=== PATIENT | male | born 1960 | race Caucasian/White ===

== ENCOUNTER 2018-10-29 23:44 | Inpatient (IN) | payer MEDICARE ==
[~2018-10-29] VITALS: Ht 172.7 cm; Wt 64.0 kg
[2018-10-29] MEDS ORDERED: MORPHINE SULFAT15 M4 (23:49)
[2018-10-29] MEDS ORDERED: FLOMAX0.4 MG (23:50)
[2018-10-29] MEDS ORDERED: GLUCOTROL 5 MG T5 MG (23:50)
[2018-10-29] MEDS ORDERED: STERAPRED 5MG 65 M1 (23:50)
[2018-10-29] MEDS ORDERED: COZAAR50 MG (23:50)
[2018-10-29] MEDS ORDERED: METFORMIN HCL500 M1 (23:50)
[2018-10-29] MEDS ORDERED: ALBUTEROL SULF8.5 GM (23:51)
[2018-10-29] MEDS ORDERED: ANORO ELLIPTA1 EACH (23:51)
[2018-10-30 00:11] LABS: BASOPHILS 0.1 % (0-2); EOSINOPHILS 0.1 % (0-7); HEMATOCRIT 43.2 % (42.0-54.0); HEMOGLOBIN 15.6 g/dL (13.5-17.5); IMMATURE GRANULOCYTES 0.4 % (0-5); LYMPHOCYTES 17.9 % (15-50); MCH 30.8 pg (26.0-34.0); MCHC 36.1 g/dL (31.0-37.0); MCV 85.4 fL (80.0-100.0); MEAN PLATELET VOLUME 8.7 fL (7.4-10.4); MONOCYTES 4.8 % (2-11); NEUTROPHILS 76.7 % (40-80); PLATELET COUNT 226 10x3/uL (130-400); RBC 5.06 10x6/uL (4.20-6.10); WBC 18.6 10x3/uL (4.8-10.8)
[2018-10-30 00:20] LABS: APTT 24.6 SECONDS (22.8-39.4); INR 0.91 (0.85-1.17); PROTIME 11.8 SECONDS (11.6-15.0)
--- NOTE | 2018-10-30 00:25 | NUR ---
PT REFUSED ABG
--- NOTE | 2018-10-30 00:25 | NUR ---
REPORT FROM KACIE TONY.
[2018-10-30 00:27] LABS: ALBUMIN 3.9 g/dL (3.4-5.0); ALKALINE PHOSPHATASE 80 U/L (46-116); ALT (SGPT) 22 U/L (10-68); BILIRUBIN - TOTAL 0.33 mg/dL (0.2-1.3); CALC OSMOLALITY 260 mosm/kg (275-300); CARBON DIOXIDE 24.8 mmol/L (21.0-32.0); CHLORIDE - SERUM 88 mmol/L (98-107); GLUCOSE 262 mg/dL (74-106); POTASSIUM - SERUM 3.9 mmol/L (3.5-5.1); SODIUM 126 mmol/L (136-145); UREA NITROGEN 11 mg/dL (7-18); eGFR NON AFRICAN AMERICAN 81 mL/min (90-120)
[2018-10-30 00:38] LABS: CKMB 1.8 U/L (0.0-3.6); CREATINE KINASE 133 UL (21-232); PRO BNP 67 pg/mL (0-125)
[2018-10-30 00:46] LABS: TROPONIN-I < 0.017 ng/mL (0.000-0.060)
[2018-10-30] MEDS ORDERED: HYDROCODONE-HOMATROP (01:57)
[2018-10-30] MEDS ORDERED: BUPROPION HCL100 M1 PO ×2 (01:57→08:47)
--- NOTE | 2018-10-30 02:40 | NUR ---
PT ARRIVED VIA WHEELCHAIR FROM ER TO ROOM 210. PT ALERT AND ORIENTED X4. RR EVEN AND UNLABORED. VITALS STABLE. PT REQUESTED NICOTINE PATCH. STATES HE WILL NOT GO OUTSIDE AND SMOKE. PATCH PLACED ON RIGHT UPPER ARM. PT UP ADLIB 97% ON 2L OF O2. BED LOW CALL LIGHT WITHIN REACH. WILL CONTINUE TO MONITOR.
--- NOTE | 2018-10-30 03:47 | NUR ---
PT COMPLAINS OF 8/10 PAIN IN CHEST FROM COUGHING. PRN PAIN MEDICATION GIVEN. RR EVEN AND UNLABORED. WILL CONTINUE TO MONITOR. CALL LIGHT WITHIN REACH.
--- NOTE | 2018-10-30 05:07 | NUR ---
ADMISSION ASSESSMENT COMPLETED PER RN.
[2018-10-30 07:17] VITALS: Ht 172.7 cm; Wt 64.0 kg
[2018-10-30] MEDS ORDERED: GLUCOPHAGE1000 MG PO (08:46)
[2018-10-30] MEDS ORDERED: GLIPIZIDE10 MG PO (08:46)
[2018-10-30] MEDS ORDERED: MORPHINE SULFAT15 M4 PO (08:48)
[2018-10-30] MEDS ORDERED: COZAAR50 MG PO (08:49)
[2018-10-30] MEDS ORDERED: FLOMAX0.4 MG PO (08:49)
[2018-10-30] MEDS ORDERED: ALBUTEROL SULF8.5 GM INH (08:50)
[2018-10-30] MEDS ORDERED: ANORO ELLIPTA1 EACH INH (08:50)
[2018-10-30 08:51] VITALS: BP 123/71
[2018-10-30 09:16] LABS: BASOPHILS 0.1 % (0-2); EOSINOPHILS 0.1 % (0-7); HEMATOCRIT 41.3 % (42.0-54.0); HEMOGLOBIN 14.5 g/dL (13.5-17.5); IMMATURE GRANULOCYTES 0.2 % (0-5); LYMPHOCYTES 4.8 % (15-50); MCH 30.7 pg (26.0-34.0); MCHC 35.1 g/dL (31.0-37.0); MCV 87.3 fL (80.0-100.0); MEAN PLATELET VOLUME 9.4 fL (7.4-10.4); MONOCYTES 1.3 % (2-11); NEUTROPHILS 93.5 % (40-80); PLATELET COUNT 224 10x3/uL (130-400); RBC 4.73 10x6/uL (4.20-6.10); RDW 13.3 % (11.5-14.5); WBC 17.2 10x3/uL (4.8-10.8)
[2018-10-30 09:27] LABS: CALCIUM 8.2 mg/dL (8.5-10.1); CARBON DIOXIDE 25.1 mmol/L (21.0-32.0); CHLORIDE - SERUM 94 mmol/L (98-107); CREATININE - SERUM 0.8 mg/dL (0.6-1.3); MAGNESIUM - SERUM 1.4 mg/dL (1.8-2.4); PHOSPHOROUS 3.6 mg/dL (2.5-4.9); SODIUM 129 mmol/L (136-145); UREA NITROGEN 11 mg/dL (7-18); eGFR NON AFRICAN AMERICAN > 90 mL/min (90-120)
[2018-10-30 09:37] LABS: CALC OSMOLALITY 270 mosm/kg (275-300); GLUCOSE 336 mg/dL (74-106); POTASSIUM - SERUM 4.9 mmol/L (3.5-5.1)
[2018-10-30 12:21] VITALS: BP 119/68
--- NOTE | 2018-10-30 15:30 | NUR ---
ALERT AND ORIENTED X4. RESTING IN BED. RT FOOT ELEVATED ON PILLOW. TWO PUNCTURE SITES ON POSTERIOR FOOT BELOW ANKLE. SWELLING AROUND AREA. WILFRIDO JOHNSTON NOTIFIED. MR OF RT ANKLE ORDERED VIA TELEPHONE TO R/O SNAKE BITE. SWELLING MARKED ON FOOT. CONTINUE PLAN OF CARE AND SAFETY PRECAUTIONS.
[2018-10-30 16:57] VITALS: BP 140/85
--- NOTE | 2018-10-30 19:51 | NUR ---
EVENING ROUNDS COMPLETED. REPORT RECEIVED. PT SITTING UP IN BED WITH EYES OPEN, RR EVEN AND UNLABORED. BED IN LOW POSITION. NO S/S OF DISTRESS NOTED. ORDERED ABX INFUSING THROUGH LFA PIV. INTRODUCED SELF TO PT. PT DENIES FURTHER NEEDS AT THIS TIME. CALL LIGHT IN REACH. WILL CTM.
[2018-10-30 20:15] VITALS: BP 143/79
--- NOTE | 2018-10-30 20:32 | NUR ---
1.4 SERUM MAGNESIUM TREATED ORDERED PER ELECTROLYTE PROTOCOL.
[2018-10-31] VITALS: BP 115/57
--- NOTE | 2018-10-31 02:28 | NUR ---
ADMINISTERED ORDERED ANALGESIC FOR COMPLAINTS OF PAIN IN RIGHT FOOT. PT STATES PAIN OF A 7 ON A SCALE OF 0-10. ALSO ADMINISTERED ORDERED COUGH SYRUP FOR PT COMPLAINTS OF COUGH. PT DENIES FURTHER NEEDS AT THIS TIME. CL IN REACH. WILL CTM.
[2018-10-31 05:23] LABS: BASOPHILS 0 % (0-2); EOSINOPHILS 0 % (0-7); HEMATOCRIT 38.8 % (42.0-54.0); HEMOGLOBIN 13.2 g/dL (13.5-17.5); IMMATURE GRANULOCYTES 0.2 % (0-5); LYMPHOCYTES 5.3 % (15-50); MCH 29.9 pg (26.0-34.0); MEAN PLATELET VOLUME 9.4 fL (7.4-10.4); MONOCYTES 1.6 % (2-11); NEUTROPHILS 92.9 % (40-80); PLATELET COUNT 192 10x3/uL (130-400); RBC 4.41 10x6/uL (4.20-6.10); RDW 13.5 % (11.5-14.5)
[2018-10-31 05:38] LABS: WBC 9.5 10x3/uL (4.8-10.8)
[2018-10-31 06:26] LABS: ANION GAP 15.4 mmol/L (8-16); BILIRUBIN - TOTAL 0.36 mg/dL (0.2-1.3); CARBON DIOXIDE 25.3 mmol/L (21.0-32.0); POTASSIUM - SERUM 4.7 mmol/L (3.5-5.1); PROTEIN - SERUM 6.1 g/dL (6.4-8.2)
[2018-10-31 06:42] LABS: CREATININE - SERUM 1.1 mg/dL (0.6-1.3); MAGNESIUM - SERUM 2.1 mg/dL (1.8-2.4)
[2018-10-31 07:53] VITALS: BP 109/87
--- NOTE | 2018-10-31 09:57 | NUR ---
ALERT AND ORIENTED X4. SITTING UP IN BED. FSBS 584. NOTIFY WILFRIDO GAUTHIER. HIGH SCALE HUMALOG ORDERED VIA TELEPHONE. 28 UNITS SQ ADMINISTERED. WAITING FOR MRI OF RT FOOT. DENIES ANY NEEDS. SHOWER AND LINEN CHANGE INITIATED. CONTINUE PLAN OF CARE AND SAFETY PRECAUTIONS.
[2018-10-31 12:20] VITALS: BP 100/57
--- NOTE | 2018-10-31 14:28 | MORECARE ---
CASE MANAGEMENT DISCHARGE SUMMARY PATIENT: ALEXIA SULTANA UNIT: [id number] ADM DATE: 10/30/18 AGE: 57 : 58 SEX: M ROOM/BED: D.0168 AUTHOR: DEBORAH,DOC PHYSICIAN: REFERRING PHYSICIAN: OLIVER MONGE MD DATE OF SERVICE: 10/31/18 Discharge Plan Patient Name: ALEXIA SULTANA Facility: [facility]:[place] : 1960 Planned Disposition: Home Anticipated Discharge Date: Discharge Date: Expected LOS: Initial Reviewer: [email or web address] Initial Review Date: 10/31/2018 Generated: 10/31/18 3:28 pm Comments DCP- Discharge Planning Updated by [email or web address]: Monserrat Neal on 10/31/18 1:[address] Patient Name: ALEXIA SULTANA Admission Status: ER Accout number: [id number] Admission Date: 10-30-2018 : 1960 Admission Diagnosis: Attending: BRIAN Current LOS: 1 Anticipated DC Date: Planned Disposition: Home Primary Insurance: MEDICARE A & B Discharge Planning Comments: CM met with patient to complete initial dc planning assessment. CM educated patient on the CM role and verbal consent given by patient to complete assessment. CM verified patient's address, phone number, and emergency contact phone numbers. Patient lives at home WITH girl friend and reports he is independent in his care. At discharge patient plans to return home and feels this is a safe discharge. CM discussed availability of home health, rehab services, and medical equipment. Patient denied known discharge needs at this time.. . CM will continue to follow and will assist as needed with dc plans/needs. Pipe Liner: Monserrat Neal DCPIA - Discharge Planning Initial Assessment Updated by [email or web address]: Monserrat Neal on 10/31/18 2:20 pm * Is the patient Alert and Oriented? Yes * How many steps to enter\exit or inside your home? * PCP VERSER * Pharmacy [facility] * Preadmission Environment Home with Family * ADLs Independent * Equipment CPAP * List name and contact numbers for known caregivers / representatives who currently or will assist patient after discharge: GIOVANA [phone] * Verbal permission to speak to the caregivers and representatives has been obtained from the patient. N/A * Additional services required to return to the preadmission environment? No * Can the patient safely return to the preadmission environment? Yes * Has this patient been hospitalized within the prior 30 days at any hospital? No Patient Name: ALEXIA SULTANA Page [id number] at 1428 All edits/amendments must be made on the electronic document DICTATION DATE: 10/31/181426 FINISHER OPERATOR: NATALYA 10/31/181426 RPT#: [id number] DC DATE: STATUS: ADM IN [facility] [address] [place] [address] END OF REPORT
[2018-10-31 17:05] VITALS: BP 118/86
--- NOTE | 2018-10-31 19:10 | NUR ---
EVENING ROUNDS MADE. PT SITTING UP IN BED. DENIES PAIN AT THIS TIME. NO FURTHER CONCERNS. BED LOWERED AND LOCKED. CL IN REACH. WILL CTM.
--- NOTE | 2018-10-31 19:21 | NUR ---
PER DR MEADOWS, RADIOLOGIST, TOO MUCH METAL IN ANKLE TO GET A DIAGNOSTIC EXAM. INFORMED NURSE JUSTIN.
[2018-10-31 20:00] VITALS: BP 111/62
--- NOTE | 2018-10-31 20:46 | NUR ---
VITALS STABLE. PT TOOK MEDS WITHOUT DIFFICULTY. PT RECIEVING BREATHING TREATMENT. NO FURTHER CONCERNS AT THIS TIME. BED LOWERED AND LOCKED. CL IN REACH. WILL CTM.
[2018-11-01] VITALS: BP 108/46
[2018-11-01 04:00] VITALS: BP 110/54
[2018-11-01 05:34] LABS: BASOPHILS 0 % (0-2); EOSINOPHILS 0 % (0-7); HEMATOCRIT 37.5 % (42.0-54.0); HEMOGLOBIN 12.9 g/dL (13.5-17.5); IMMATURE GRANULOCYTES 0.3 % (0-5); LYMPHOCYTES 4.9 % (15-50); MCHC 34.4 g/dL (31.0-37.0); MCV 87.2 fL (80.0-100.0); MEAN PLATELET VOLUME 9.3 fL (7.4-10.4); MONOCYTES 1.8 % (2-11); PLATELET COUNT 202 10x3/uL (130-400); RDW 13.7 % (11.5-14.5)
[2018-11-01 05:56] LABS: WBC 14.7 10x3/uL (4.8-10.8)
[2018-11-01 06:08] LABS: ALBUMIN 2.7 g/dL (3.4-5.0); ALKALINE PHOSPHATASE 63 U/L (46-116); ALT (SGPT) 19 U/L (10-68); BILIRUBIN - TOTAL 0.33 mg/dL (0.2-1.3); CALCIUM 8.5 mg/dL (8.5-10.1); CARBON DIOXIDE 25.5 mmol/L (21.0-32.0); CHLORIDE - SERUM 99 mmol/L (98-107); CREATININE - SERUM 0.9 mg/dL (0.6-1.3); MAGNESIUM - SERUM 1.8 mg/dL (1.8-2.4); POTASSIUM - SERUM 4.2 mmol/L (3.5-5.1); SODIUM 133 mmol/L (136-145); UREA NITROGEN 18 mg/dL (7-18); eGFR NON AFRICAN AMERICAN > 90 mL/min (90-120)
[2018-11-01 06:32] LABS: CALC OSMOLALITY 278 mosm/kg (275-300); GLUCOSE 296 mg/dL (74-106)
[2018-11-01 08:06] VITALS: BP 103/59
[2018-11-01 08:17] LABS: IMMUNOGLOBULIN A 159 mg/dL (90-386); IMMUNOGLOBULIN G 531 mg/dL (700-1600)
--- NOTE | 2018-11-01 11:00 | NUR ---
ALERT AND ORIENTED X4. AMBULATING IN ROOM. LT FA IV INFILTRATED. DC LT FA IV TIP INTACT. PATIENT STATES, "I THINK I'M GOING HOME TODAY." VERIFY WITH PATIENT PLANNED LENGTH OF STAY. STATES, "I WANT TO KEEP HIM ONE MORE DAY TO BE SURE HE WILL NOT HAVE TO COME RIGHT BACK." 20G IV SITED TO RT FA. PAIN MANAGEMENT CONTINUED. RT FOOT SWELLING IMPROVING. DENIES SOB. DENIES ANY NEEDS. CONTINUE PLAN OF CARE AND SAFETY PRECAUTIONS.
--- NOTE | 2018-11-01 19:10 | NUR ---
AWAKE ANSD ALERT WITH SEVERAL FAMILY MEMBERS PRESENT AT THIS TIME BED LOW AND LOCKED CALL LIGHT IN PLACE SKIN WARM AND DRY BOWEL SOUNDS X4 LUNGS DEMINISHED BUT CLEAR DENIES NEEDS AT THIS TIME
[2018-11-01 20:00] VITALS: BP 145/76
[2018-11-02] VITALS: BP 161/82
--- NOTE | 2018-11-02 01:50 | NUR ---
I have reviewed this patient and I concur with the Shift Assessment completed by the Licensed Practical Nurse today this shift.
[2018-11-02 04:00] VITALS: BP 127/73
[2018-11-02 04:56] LABS: BASOPHILS 0 % (0-2); EOSINOPHILS 0 % (0-7); HEMATOCRIT 38.4 % (42.0-54.0); HEMOGLOBIN 13.3 g/dL (13.5-17.5); IMMATURE GRANULOCYTES 0.2 % (0-5); LYMPHOCYTES 6.6 % (15-50); MCH 30.2 pg (26.0-34.0); MCHC 34.6 g/dL (31.0-37.0); MCV 87.1 fL (80.0-100.0); MEAN PLATELET VOLUME 9.3 fL (7.4-10.4); MONOCYTES 3.1 % (2-11); NEUTROPHILS 90.1 % (40-80); PLATELET COUNT 192 10x3/uL (130-400); RBC 4.41 10x6/uL (4.20-6.10); RDW 13.6 % (11.5-14.5)
[2018-11-02 05:14] LABS: ALBUMIN 2.6 g/dL (3.4-5.0); ALKALINE PHOSPHATASE 80 U/L (46-116); BILIRUBIN - TOTAL 0.31 mg/dL (0.2-1.3); CALC OSMOLALITY 268 mosm/kg (275-300); CALCIUM 8.6 mg/dL (8.5-10.1); CARBON DIOXIDE 26.9 mmol/L (21.0-32.0); CHLORIDE - SERUM 98 mmol/L (98-107); CREATININE - SERUM 0.9 mg/dL (0.6-1.3); GLUCOSE 301 mg/dL (74-106); MAGNESIUM - SERUM 1.5 mg/dL (1.8-2.4); POTASSIUM - SERUM 4.3 mmol/L (3.5-5.1); PROTEIN - SERUM 5.3 g/dL (6.4-8.2); SODIUM 128 mmol/L (136-145); UREA NITROGEN 16 mg/dL (7-18); eGFR NON AFRICAN AMERICAN > 90 mL/min (90-120)
[2018-11-02 05:15] LABS: ALT (SGPT) 24 U/L (10-68)
--- NOTE | 2018-11-02 07:30 | NUR ---
A/A/OX4. REQUESTS MED FOR PAIN IN RIGHT ANKLE. STATES PAIN IS 7/10. ASSESSMENT COMPLETED AND WILL CONTINUE POC. PT IS HOPING TO BE DISCHARGED. UP AND ABOUT IN ROOM WITH STEADY GAIT. IV PATENT TO RIGHT FOREARM WITHOUT REDNESS OR EDEMA AT SITE. CALL LIGHT IN REACH.
[2018-11-02] MEDS ORDERED: DOXYCYCLINE HY100 M2 PO (10:23)
--- NOTE | 2018-11-02 11:15 | NUR ---
DISCHARGE INSTRUCTIONS REVIEWED WITH PT AND VERBALIZES UNDERSTANDING WITH NO QUESTIONS. IV REMOVED WITH TIP INTACT AND TOLERATED WELL. LEFT FLOOR AMBULATORY AT HIS REQUEST WITH ALL BELONGINGS. LEFT FACILITY PER PRIVATE VEHICLE WITH A FRIEND.
--- NOTE | 2018-11-02 13:17 | MORECARE ---
CASE MANAGEMENT DISCHARGE SUMMARY PATIENT: ALEXIA SULTANA UNIT: [id number] ADM DATE: 10/30/18 AGE: 57 : 58 SEX: M ROOM/BED: D.2103 AUTHOR: DEBORAH,DOC PHYSICIAN: REFERRING PHYSICIAN: OLIVER MONGE MD DATE OF SERVICE: 11/02/18 Discharge Plan Patient Name: ALEXIA SULTANA Facility: [facility]:[place] : 1960 Planned Disposition: Home Anticipated Discharge Date: 11/02/18 Discharge Date: 11/02/2018 Expected LOS: 3 Initial Reviewer: [email or web address] Initial Review Date: 10/31/2018 Generated: 11/02/18 2:17 pm Comments DCP- Discharge Planning Updated by [email or web address]: Zohaib No on 11/02/18 12:[address] Patient Name: ALEXIA SULTANA Encounter No: [id number] : 1960 Primary Insurance: MEDICARE A & B Anticipated DC Date: 11-02-2018 Planned Disposition: Home DCP follow-up note: CM MET WITH PT IN ROOM TO DISCUSS DISCHARGE NEEDS AND PLANNING. CM DISCUSSED AVAILABILITY OF HOME HEALTH, REHAB SERVICES AND MEDICAL EQUIPMENT. PT DENIES DISCHARGE NEEDS. PT REPORTS "[facility]" TO TRANSPORT HOME AT DISCHARGE. IMPORTANT MESSAGE FROM MEDICARE PROVIDED AND EXPLAINED. COKE LOADER NURSE NOTIFIED. DORI Moreno DCP- Discharge Planning Updated by [email or web address]: Monserrat Neal on 10/31/18 1:[address] Patient Name: ALEXIA SULTANA Admission Status: ER Accout number: [id number] Admission Date: 10-30-2018 : 1960 Admission Diagnosis: Attending: BRIAN Current LOS: 1 Anticipated DC Date: Planned Disposition: Home Primary Insurance: MEDICARE A & B Discharge Planning Comments: CM met with patient to complete initial dc planning assessment. CM educated patient on the CM role and verbal consent given by patient to complete assessment. CM verified patient's address, phone number, and emergency contact phone numbers. Patient lives at home WITH girl friend and reports he is independent in his care. At discharge patient plans to return home and feels this is a safe discharge. CM discussed availability of home health, rehab services, and medical equipment. Patient denied known discharge needs at this time.. . CM will continue to follow and will assist as needed with dc plans/needs. Steam Tank Operator: Monserrat Neal DCPIA - Discharge Planning Initial Assessment Updated by [email or web address]: Monserrat Neal on 10/31/18 2:20 pm * Is the patient Alert and Oriented? Yes * How many steps to enter\\exit or inside your home? * PCP VERSER * Pharmacy [facility] * Preadmission Environment Home with Family * ADLs Independent * Equipment CPAP * List name and contact numbers for known caregivers / representatives who currently or will assist patient after discharge: GIOVANA [phone] * Verbal permission to speak to the caregivers and representatives has been obtained from the patient. N/A * Additional services required to return to the preadmission environment? No * Can the patient safely return to the preadmission environment? Yes * Has this patient been hospitalized within the prior 30 days at any hospital? No Coverage Notice Reviewer: [email or web address] Alicia No Notice Issued Date-Time: 11/02/2018 10:50 Notice Type: Patient Choice Letter Notice Delivered To: Patient Relationship to Patient: Evs Tech Name: Delivery Method: HAND - Hand Delivered Radha Days: Prior Verbal Notification: Recipient Understood Notice: Yes Recipient Signature: Yes Med Rec Note Co-signed by Attending: Coverage Notice Comment: Last DP export: 10/31/18 1:28 pm Patient Name: ALEXIA SULTANA Page [phone] at 1317 All edits/amendments must be made on the electronic document DICTATION DATE: 11/02/18 1316 FISHER EEL SPEAR: NATALYA 11/02/18 1316 RPT#: [id number] DC DATE:11/02/18 STATUS: DIS IN [facility] [address] [place] [address] END OF REPORT
[2018-11-04 03:05] LABS: IMMUNOGLOBULIN E 245 IU/mL (6-495)
== END 2018-11-02 11:10 | disposition home or self-care (01) | DRG 191 ==
LOC: D.ER 23:44 → D.M2 10-30 01:18
PROVIDERS: Family Medicine; Internal Medicine Pulmonary Disease; ADMIT Family Medicine; ATTEND Family Medicine
DX: J47.0 Bronchiectasis with acute lower respiratory infection (principal); F17.213 Nicotine dependence, cigarettes, with withdrawal; E87.1 Hypo-osmolality and hyponatremia; J18.9 Pneumonia, unspecified organism; E11.65 Type 2 diabetes mellitus with hyperglycemia; T63.001A Toxic effect of unspecified snake venom, accidental (unintentional), initial encounter; S91.351A Open bite, right foot, initial encounter; W59.11XA Bitten by nonvenomous snake, initial encounter; K21.9 Gastro-esophageal reflux disease without esophagitis; E83.42 Hypomagnesemia; I10 Essential (primary) hypertension; F41.9 Anxiety disorder, unspecified; J30.9 Allergic rhinitis, unspecified; N40.0 Benign prostatic hyperplasia without lower urinary tract symptoms

== ENCOUNTER → 2019-01-06 08:43 | Outpatient (CLI) | payer MEDICARE ==
[~2019-01-06 08:43] MED LIST: ALBUTEROL SULF8.5 GM; ALBUTEROL SULF8.5 GM INH; ANORO ELLIPTA1 EACH; ANORO ELLIPTA1 EACH INH; BUPROPION HCL100 M1 PO; COZAAR50 MG; COZAAR50 MG PO; DOXYCYCLINE HY100 M2 PO; FLOMAX0.4 MG; FLOMAX0.4 MG PO; GLIPIZIDE10 MG PO; GLUCOPHAGE1000 MG PO; GLUCOTROL 5 MG T5 MG; HYDROCODONE-HOMATROP; METFORMIN HCL500 M1; MORPHINE SULFAT15 M4; MORPHINE SULFAT15 M4 PO; STERAPRED 5MG 65 M1
== END | disposition home or self-care (01) ==
LOC: D.RT 12-27 11:30
PROVIDERS: ATTEND Internal Medicine Pulmonary Disease
DX: J44.9 Chronic obstructive pulmonary disease, unspecified (principal)